=== PATIENT | female | born 2000 | race Caucasian/White ===

== ENCOUNTER 2021-09-13 11:31 | Day surgery (SDC) | payer BC ==
[2021-09-11 15:40] VITALS: BMI 27.3
[~2021-09-13 11:31] MED LIST: LACTATED RINGERS 1,000 ML IV SCH; LIDOCAINE 1% (10MG/ML) FOR IV START INTRADERMA PRN
[2021-09-13] MEDS ORDERED: ONDANSETRON 4 MG/2 ML VIAL ONE (12:15)
[2021-09-13] MEDS ORDERED: DEXAMETHASONE SOD PHOSPHATE 4 MG/ML 1 ML VIAL IVP ONE (12:23)
[2021-09-13] MEDS ORDERED: ONDANSETRON 4 MG/2 ML VIAL IVP ONE (12:23)
[2021-09-13] MEDS ORDERED: LIDOCAINE 1% INJ 10MG/ML (20 ML MDV) ONE (12:51)
[2021-09-13] MEDS ORDERED: KETOROLAC 15 MG/ML 1 ML VIAL ONE (12:51)
[2021-09-13] MEDS ORDERED: PROPOFOL 10 MG/ML 20 ML VIAL IV ONE (12:51)
[2021-09-13] MEDS ORDERED: fentaNYL (PF) 50 MCG/ML 2 ML AMP ONE (12:51)
[2021-09-13] MEDS ORDERED: MIDAZOLAM 2 MG/2 ML VIAL ONE (12:51)
[2021-09-13] MEDS ORDERED: BUPIVACAINE (PF) 0.25% 30 ML VIAL SQ ONE ×2 (13:21→13:35)
--- NOTE | 2021-09-13 13:53 | P.OP ---
Date of Procedure: 09/13/21 Preoperative Diagnosis: Hypertrophied bone fourth and fifth toes right foot Postoperative Diagnosis: Same Procedure(s) Performed: Partial phalangectomy medial and lateral sided distal interphalangeal joint fifth digit right foot and partial phalangectomy lateral side approximately interphalangeal joint fourth digit right foot Anesthesia: KENYA Surgeon: Urban Sanchez Operative Findings: Remarkable Description of Procedure: On the date of surgery the patient was taken operating room good condition placed on the operating table supine position where an IV was started and general anesthetic agents administered. The patients right foot and ankle were then prepped and draped in the usual aseptic manner and over heavy web roll padding an ankle tourniquet was placed above the malleoli of the patient's right ankle. The patient's right foot and ankle were then elevated and exsanguinated of blood utilizing an Esmarch bandage and the ankle tourniquet was inflated to approximately 250 mmHg At this time attention was directed to the aspect of the proximal interphalangeal joint on the lateral side of the fourth digit left foot where an approximately 0.5 cm linear incision was made the incision was deepened via sharp dissection down through the level of this subcutaneous tissue layers all neurovascular sutures were identified and retracted dissection was carried deep down to level of the periosteal structures these were incised in line with the original skin incision and underscored and retracted from the underlying bone. Rotary bur was then introduced hyperostosis present on the lateral side of the proximal interphalangeal joint was then craterized. Surgical site was flushed with copious amounts sterile saline solution and the skin edges were coaptated and maintained utilizing 4-0 nylon simple interrupted suture At this point in time attention was directed to the medial and lateral sides of the distal interphalangeal joint of the fifth digit right foot where the exact same procedure described above for the fourth digit was carried out on these locations. The fourth and fifth digits were then injected with 2.5 mL of 0.25% plain Marcaine optic to inch gauze was used form a compression dressing and was covered with to inch conform area the tourniquet was then deflated and adequate hemostatic return was seen in all digits of the right foot specifically the fourth and fifth digits The patient tolerated the surgery and anesthesia well was taken to the recovery room in good postoperative condition.
[2021-09-13 13:54] VITALS: TEMP 97.2
[2021-09-13 14:26] VITALS: RESP 15
[2021-09-13 14:37] VITALS: BP 116/83; PULSE 84
== END 2021-09-13 15:04 | disposition home or self-care (01) ==
LOC: OR 11:31
PROVIDERS: ATTEND Podiatrist Foot & Ankle Surgery
DX: M89.371 Hypertrophy of bone, right ankle and foot (principal); M79.671 Pain in right foot; J30.2 Other seasonal allergic rhinitis; Z79.899 Other long term (current) drug therapy; Z79.3 Long term (current) use of hormonal contraceptives; Z91.048 Other nonmedicinal substance allergy status; Z98.890 Other specified postprocedural states
CPT/HCPCS: 28124 ×2; 81025; J2250; J1100; J0690; J2405; J2001; J3010; J1885; J2704